=== PATIENT | male | born 1950 | race Caucasian/White ===

== ENCOUNTER → 2020-04-28 | Outpatient (CLI) | payer MEDICARE | LOC: KOH-I 13:15 | DX: F17.210 Nicotine dependence, cigarettes, uncomplicated (principal); R91.8 Other nonspecific abnormal finding of lung field | CPT/HCPCS: 71271 ==

== ENCOUNTER → 2021-06-03 | Outpatient (CLI) | payer MEDICARE | LOC: KOH-I 10:33 | DX: F17.210 Nicotine dependence, cigarettes, uncomplicated (principal) | CPT/HCPCS: 71271 ==

== ENCOUNTER → 2021-11-30 | Outpatient (CLI) | payer MEDICARE | LOC: KOH-I 09:43 | DX: R07.81 Pleurodynia (principal) | CPT/HCPCS: 71101 ==